=== PATIENT | male | born 1940 | race Caucasian/White ===

== ENCOUNTER 2017-12-21 16:03 | Emergency (ER) | payer MEDICARE ==
[~2017-12-21] VITALS: Ht 182.9 cm; Wt 94.3 kg
[~2017-12-21 16:03] MED LIST: ACET325T14 PO; AMLO5TAB2 PO; ASPI-515 PO; ENOX40SY4 SQ; FLUT9.9S NAS; LISI-167 PO; METO25TA35 PO; NIAC500C8 PO; OXYC5TAB3 PO; PANT40TA3 PO; SENN1TAB67 PO; SENN1TAB7 PO; SULF1TAB24 PO; TAMS-11 PO; TIOT18CA INH; [UNRECOGNIZED DRUG - CODE] PO
[2017-12-21 17:13] LABS: BASOPHILS # (AUTO) 0.07 x10^3/uL (0-0.1); BASOPHILS % (AUTO) 1 % (0-1); EOSINOPHILS # (AUTO) 0.14 x10^3/uL (0-0.4); EOSINOPHILS % (AUTO) 2 % (1-7); LYMPHOCYTES # (AUTO) 1.75 x10^3/uL (1-3.4); LYMPHOCYTES % (AUTO) 29 % (22-44); MD NO; MEAN CORPUSCULAR HEMOGLOBIN 32.2 pg (27.5-34.5); MEAN CORPUSCULAR HGB CONC 33.9 g/dL (33.2-36.2); MEAN PLATELET VOLUME 6.9 fL (7.4-10.4); MONOCYTES # (AUTO) 0.42 x10^3/uL (0.2-0.8); MONOCYTES % (AUTO) 7 % (2-9); NEUTROPHILS # (AUTO) 3.77 x10^3/uL (1.8-6.8); NEUTROPHILS % (AUTO) 61 % (42-75); PLATELET COUNT 183 x10^3/uL (130-400); RED BLOOD COUNT 4.81 x10^6/uL (4.38-5.82); RED CELL DISTRIBUTION WIDTH 14.4 % (9.4-14.8)
[2017-12-21 17:22] LABS: ALBUMIN 3.8 g/dL (3.4-5.0); ANION GAP 5 mmol/L (5-15); CHLORIDE 108 mmol/L (98-107); CREATININE 1.11 mg/dL (0.7-1.3)
[2017-12-21 18:24] VITALS: BP 153/82
[2017-12-21 18:26] LABS: CULTURE INDICATED? YES; MICROSCOPIC INDICATED
== END 2017-12-21 19:10 | disposition home or self-care (01) ==
LOC: ED 19:00
DX: R31.0 Gross hematuria (principal); D29.1 Benign neoplasm of prostate; N30.00 Acute cystitis without hematuria; J44.9 Chronic obstructive pulmonary disease, unspecified; I10 Essential (primary) hypertension; F17.200 Nicotine dependence, unspecified, uncomplicated
CPT/HCPCS: 36415; 51702; 80048; 81001; 82040; 85025; 87077; 87086; 87186; 99284

== ENCOUNTER → 2018-09-22 | Outpatient (CLI) | payer MEDICARE ==
[~2018-09-22] MED LIST changes: +AMLO-150 PO; -AMLO5TAB2 PO; +ASCO10004 PO; +ATOR40TA78 PO; +B CO1TAB14 PO; +CETI10TA24 PO; +FINA5TAB4 PO; +MAGN400T36 PO; +MULT-516 PO; +NIAC500T9 PO; +OMEG-173 PEG; +PLAN450C PO; +POTASSIUM PO; +RED600TA PO; +SAW450CA7 PO; +SENN-177 PO; -SENN1TAB7 PO; +VITA80004 PO
[2018-09-22 13:25] LABS: BASOPHILS # (AUTO) 0.08 x10^3/uL (0-0.1); BASOPHILS % (AUTO) 1 % (0-1); EOSINOPHILS # (AUTO) 0.27 x10^3/uL (0-0.4); EOSINOPHILS % (AUTO) 4 % (1-7); LYMPHOCYTES # (AUTO) 2.22 x10^3/uL (1-3.4); LYMPHOCYTES % (AUTO) 32 % (22-44); MD NO; MEAN CORPUSCULAR HEMOGLOBIN 32.2 pg (27.5-34.5); MEAN CORPUSCULAR VOLUME 97.7 fL (81-97); MEAN PLATELET VOLUME 7.2 fL (7.4-10.4); MONOCYTES # (AUTO) 0.42 x10^3/uL (0.2-0.8); MONOCYTES % (AUTO) 6 % (2-9); NEUTROPHILS # (AUTO) 3.99 x10^3/uL (1.8-6.8); NEUTROPHILS % (AUTO) 57 % (42-75); PLATELET COUNT 155 x10^3/uL (130-400); RED BLOOD COUNT 5.09 x10^6/uL (4.38-5.82); RED CELL DISTRIBUTION WIDTH 14.1 % (9.4-14.8)
[2018-09-22 13:57] LABS: CHLORIDE 110 mmol/L (98-107)
[2018-09-22 14:04] LABS: ALANINE AMINOTRANSFERASE 21 U/L (12-78); ALKALINE PHOSPHATASE 79 U/L (45-117); ANION GAP 6 mmol/L (5-15); BILIRUBIN,TOTAL 0.4 mg/dL (0.2-1.0); CALCIUM 9.2 mg/dL (8.5-10.1); CREATININE 0.98 mg/dL (0.7-1.3); TOTAL PROTEIN 7.9 g/dL (6.4-8.2)
== END | disposition home or self-care (01) ==
LOC: STAR 12:03
PROVIDERS: ATTEND Colon & Rectal Surgery
DX: Z01.818 Encounter for other preprocedural examination (principal); R94.31 Abnormal electrocardiogram [ECG] [EKG]; I44.0 Atrioventricular block, first degree
CPT/HCPCS: 36415; 80053; 85025; 93005

== ENCOUNTER 2018-10-15 05:49 | Inpatient (IN) | payer MEDICARE ==
[~2018-10-15] VITALS: Ht 185.4 cm; Wt 97.2 kg
[2018-10-15 06:18] VITALS: BP 173/75
[2018-10-15] MEDS ORDERED: LACTATED RINGERS 1,000 ML IV SCH (06:23)
[2018-10-15] MEDS ORDERED: ALBUTEROL/IPRATROPIUM 2.5MG/0.5MG, 3 ML NEB ONE (06:44)
[2018-10-15] MEDS ORDERED: EPINEPHRINE 1 MG/ML, 1ML ONE (07:25)
[2018-10-15] MEDS ORDERED: BUPIVACAINE/PF 0.5% ONE (07:25)
[2018-10-15] MEDS ORDERED: ALBUTEROL/IPRATROPIUM 2.5MG/0.5MG, 3 ML ONE (07:34)
[2018-10-15] MEDS ORDERED: SUGAMMADEX 200 MG/2 ML IVPush ONE (07:44)
[2018-10-15] MEDS ORDERED: CEFOTETAN 2 GM ONE (07:44)
[2018-10-15] MEDS ORDERED: EPHEDRINE 50 MG/ML, 1ML ONE (08:10)
[2018-10-15] MEDS ORDERED: PHENYLEPHRINE 10 MG/ML ONE (08:10)
[2018-10-15] MEDS ORDERED: PROPOFOL 10 MG/ML, 20ML ONE ×2 (08:10→08:59)
[2018-10-15] MEDS ORDERED: ROCURONIUM 10MG/ML,5ML ONE ×2 (08:10→08:59)
[2018-10-15] MEDS ORDERED: FENTANYL PF 100 MCG/2ML ONE ×4 (08:22→11:02)
[2018-10-15] MEDS ORDERED: THROMBIN 5,000 UNIT VIAL TP ONE ×2 (08:42→08:47)
[2018-10-15] MEDS ORDERED: THROMBIN 20,000 UNIT VIAL TP ONE (08:58)
[2018-10-15] MEDS ORDERED: HYDROmorphone 2 MG/ML, 1ML IVPush PRN (09:00)
[2018-10-15] MEDS ORDERED: OXYcodone 5 MG/5 ML ORAL.SOL UDC PO PRN (09:00)
[2018-10-15] MEDS ORDERED: ACETAMINOPHEN 325 MG TABLET PO PRN (09:00)
[2018-10-15] MEDS ORDERED: ESMOLOL 100 MG/10 ML ONE (09:00)
[2018-10-15] MEDS ORDERED: METOPROLOL 1 MG/ML, 5ML ONE (09:00)
[2018-10-15] MEDS ORDERED: MEPERIDINE/PF 25MG/0.5ML IVPush PRN (09:00)
[2018-10-15] MEDS ORDERED: MORPHINE SULFATE 4 MG/ML, 1ML IVPush PRN ×2 (09:00→14:30)
[2018-10-15] MEDS ORDERED: FENTANYL PF 100 MCG/2ML IV PRN (09:00)
[2018-10-15] MEDS ORDERED: HYDROcodone/APAP 7.5-325MG/15ML UDC PO PRN (09:00)
[2018-10-15] MEDS: HYDROmorphone 2 MG/ML, 1ML IVPush PRN ×3 (09:20→13:00)
[2018-10-15] MEDS ORDERED: OXYcodone 5 MG/5 ML ORAL.SOL UDC ONE (11:02)
[2018-10-15] MEDS ORDERED: ACETAMINOPHEN 650 MG/20.3 ML UDC ONE (11:23)
[2018-10-15 11:42] LABS: BASOPHILS # (AUTO) 0.03 x10^3/uL (0-0.1); BASOPHILS % (AUTO) 0 % (0-1); EOSINOPHILS # (AUTO) 0.03 x10^3/uL (0-0.4); EOSINOPHILS % (AUTO) 0 % (1-7); LYMPHOCYTES # (AUTO) 0.51 x10^3/uL (1-3.4); LYMPHOCYTES % (AUTO) 7 % (22-44); MD NO; MEAN CORPUSCULAR HGB CONC 33.1 g/dL (33.2-36.2); MEAN CORPUSCULAR VOLUME 96.9 fL (81-97); MEAN PLATELET VOLUME 6.5 fL (7.4-10.4); MONOCYTES # (AUTO) 0.24 x10^3/uL (0.2-0.8); MONOCYTES % (AUTO) 3 % (2-9); NEUTROPHILS # (AUTO) 6.31 x10^3/uL (1.8-6.8); NEUTROPHILS % (AUTO) 89 % (42-75); PLATELET COUNT 182 x10^3/uL (130-400); RED BLOOD COUNT 3.67 x10^6/uL (4.38-5.82); RED CELL DISTRIBUTION WIDTH 14.4 % (9.4-14.8)
[2018-10-15] MEDS ORDERED: HYDROmorphone 2 MG/ML, 1ML ONE (11:52)
[2018-10-15 11:54] LABS: INTERNATIONAL NORMALIZED RATIO 1.11 (0.93-1.1); PROTHROMBIN TIME 11.6 Seconds (9.6-11.5)
[2018-10-15] MEDS: IPRATROPIUM 0.5 MG/2.5 ML INHA NPPB SCH ×2 (14:30→20:30)
[2018-10-15] MEDS ORDERED: LORazepam 2 MG/ML, 1ML IVPush PRN (14:30)
[2018-10-15] MEDS ORDERED: TRAZODONE 50MG TABLET PO PRN (14:30)
[2018-10-15] MEDS ORDERED: DIPHENHYDRAMINE 25 MG CAPSULE PO PRN (14:30)
[2018-10-15] MEDS ORDERED: CALCIUM CARBONATE 500 MG TAB.CHEW PO PRN (14:30)
[2018-10-15] MEDS ORDERED: ONDANSETRON 2MG/ML, 2ML IV PRN (14:30)
[2018-10-15] MEDS ORDERED: DIPHENHYDRAMINE 50 MG/ML, 1ML IVPush PRN (14:30)
[2018-10-15] MEDS ORDERED: SCOPOLAMINE PATCH, 1.5MG PATCH.TD72 TD PRN (14:30)
[2018-10-15] MEDS ORDERED: DEXAMETHASONE 4 MG/ML, 1ML IVPush PRN (14:30)
[2018-10-15] MEDS ORDERED: LORazepam 1MG TABLET PO PRN (14:30)
[2018-10-15] MEDS ORDERED: HALOPERIDOL 5 MG/ML IVPush PRN (14:30)
[2018-10-15] MEDS: OXYcodone IR 5MG TABLET PO PRN ×3 (15:25→23:23)
[2018-10-15] MEDS: LACTATED RINGERS 1,000 ML IV SCH (16:00)
[2018-10-15] MEDS: ACETAMINOPHEN 500 MG TABLET PO SCH ×2 (17:41→23:22)
[2018-10-15] MEDS: METOPROLOL TARTRATE 25 MG TABLET PO SCH (17:41)
[2018-10-15 19:04] VITALS: BP 148/70
[2018-10-15] MEDS: ATORVASTATIN 40 MG TABLET PO SCH (20:44)
[2018-10-15 23:36] VITALS: BP 130/56
[2018-10-16] MEDS: LACTATED RINGERS 1,000 ML IV SCH ×3 (01:09→21:00)
[2018-10-16] MEDS: IPRATROPIUM 0.5 MG/2.5 ML INHA NPPB SCH ×4 (02:30→20:30)
[2018-10-16 03:15] LABS: BASOPHILS # (AUTO) 0.03 x10^3/uL (0-0.1); BASOPHILS % (AUTO) 1 % (0-1); EOSINOPHILS # (AUTO) 0.09 x10^3/uL (0-0.4); EOSINOPHILS % (AUTO) 2 % (1-7); LYMPHOCYTES # (AUTO) 1.16 x10^3/uL (1-3.4); LYMPHOCYTES % (AUTO) 22 % (22-44); MD NO; MEAN CORPUSCULAR HEMOGLOBIN 32.7 pg (27.5-34.5); MEAN CORPUSCULAR HGB CONC 33.4 g/dL (33.2-36.2); MEAN PLATELET VOLUME 7.4 fL (7.4-10.4); MONOCYTES # (AUTO) 0.55 x10^3/uL (0.2-0.8); MONOCYTES % (AUTO) 10 % (2-9); NEUTROPHILS # (AUTO) 3.51 x10^3/uL (1.8-6.8); NEUTROPHILS % (AUTO) 66 % (42-75); PLATELET COUNT 177 x10^3/uL (130-400); RED BLOOD COUNT 3.54 x10^6/uL (4.38-5.82); RED CELL DISTRIBUTION WIDTH 14.5 % (9.4-14.8)
[2018-10-16 03:22] LABS: ANION GAP 4 mmol/L (5-15); CALCIUM 8.2 mg/dL (8.5-10.1); CHLORIDE 110 mmol/L (98-107)
[2018-10-16 03:23] LABS: CREATININE 0.99 mg/dL (0.7-1.3)
[2018-10-16 03:48] VITALS: BP 117/60
[2018-10-16 05:35] VITALS: BP 137/67
[2018-10-16] MEDS: OXYcodone IR 5MG TABLET PO PRN ×4 (05:36→21:25)
[2018-10-16] MEDS: METOPROLOL TARTRATE 25 MG TABLET PO SCH ×2 (05:36→17:15)
[2018-10-16] MEDS: ACETAMINOPHEN 500 MG TABLET PO SCH ×4 (05:36→23:20)
[2018-10-16 07:25] VITALS: BP 126/63
[2018-10-16] MEDS: ASCORBIC ACID 500 MG TABLET PO SCH (08:55)
[2018-10-16] MEDS: TAMSULOSIN 0.4 MG CAP.ER.24H PO SCH (08:55)
[2018-10-16] MEDS: CETIRIZINE 10 MG TABLET PO SCH (08:55)
[2018-10-16] MEDS: FINASTERIDE 5 MG TABLET PO SCH (08:55)
[2018-10-16] MEDS ORDERED: FENTANYL PF 100 MCG/2ML IV PRN (10:00)
[2018-10-16 13:40] VITALS: BP 142/67
[2018-10-16 17:18] VITALS: BP 152/64
[2018-10-16 19:51] VITALS: BP 136/62
[2018-10-16] MEDS: ATORVASTATIN 40 MG TABLET PO SCH (21:25)
[2018-10-17] MEDS: IPRATROPIUM 0.5 MG/2.5 ML INHA NPPB SCH ×2 (02:30→09:40)
[2018-10-17 03:58] VITALS: BP 143/67
[2018-10-17] MEDS: OXYcodone IR 5MG TABLET PO PRN ×2 (04:07→10:49)
[2018-10-17] MEDS: LACTATED RINGERS 1,000 ML IV SCH (05:59)
[2018-10-17] MEDS: ACETAMINOPHEN 500 MG TABLET PO SCH ×2 (05:59→11:29)
[2018-10-17] MEDS: METOPROLOL TARTRATE 25 MG TABLET PO SCH (05:59)
[2018-10-17 06:15] LABS: BASOPHILS # (AUTO) 0.02 x10^3/uL (0-0.1); BASOPHILS % (AUTO) 0 % (0-1); EOSINOPHILS # (AUTO) 0.07 x10^3/uL (0-0.4); EOSINOPHILS % (AUTO) 1 % (1-7); LYMPHOCYTES % (AUTO) 12 % (22-44); MD NO; MEAN CORPUSCULAR HEMOGLOBIN 32.4 pg (27.5-34.5); MEAN CORPUSCULAR HGB CONC 32.8 g/dL (33.2-36.2); MEAN CORPUSCULAR VOLUME 98.7 fL (81-97); MEAN PLATELET VOLUME 7.7 fL (7.4-10.4); MONOCYTES # (AUTO) 0.59 x10^3/uL (0.2-0.8); MONOCYTES % (AUTO) 8 % (2-9); NEUTROPHILS # (AUTO) 5.83 x10^3/uL (1.8-6.8); NEUTROPHILS % (AUTO) 79 % (42-75); PLATELET COUNT 172 x10^3/uL (130-400); RED BLOOD COUNT 3.67 x10^6/uL (4.38-5.82); RED CELL DISTRIBUTION WIDTH 14.3 % (9.4-14.8)
[2018-10-17 06:21] LABS: ANION GAP 5 mmol/L (5-15); CALCIUM 8.9 mg/dL (8.5-10.1); CHLORIDE 107 mmol/L (98-107); CREATININE 0.93 mg/dL (0.7-1.3)
[2018-10-17 07:25] VITALS: BP 135/71
[2018-10-17] MEDS: ASCORBIC ACID 500 MG TABLET PO SCH (08:16)
[2018-10-17] MEDS: TAMSULOSIN 0.4 MG CAP.ER.24H PO SCH (08:17)
[2018-10-17] MEDS: FINASTERIDE 5 MG TABLET PO SCH (08:17)
[2018-10-17] MEDS: CETIRIZINE 10 MG TABLET PO SCH (08:17)
[2018-10-17 08:45] VITALS: BP 137/67
[2018-10-17] MEDS ORDERED: OXYC-302 PO (11:28)
== END 2018-10-17 12:00 | disposition home or self-care (01) | DRG 330 ==
LOC: ORIP 05:49 → 4NOR 13:48 → DCLOUNGE 10-17 11:39
PROVIDERS: ADMIT Colon & Rectal Surgery; ATTEND Colon & Rectal Surgery
PROC: 30233R1 Transfusion of Nonautologous Platelets into Peripheral Vein, Percutaneous Approach (ICD-10-PCS; 2018-10-15)
PROC: 0DBL4ZZ Excision of Transverse Colon, Percutaneous Endoscopic Approach (ICD-10-PCS; principal; 2018-10-15 07:30)
DX: C18.4 Malignant neoplasm of transverse colon (principal); D68.69 Other thrombophilia; I10 Essential (primary) hypertension; E03.9 Hypothyroidism, unspecified; F17.210 Nicotine dependence, cigarettes, uncomplicated; Z88.0 Allergy status to penicillin; Z79.82 Long term (current) use of aspirin; Z79.899 Other long term (current) drug therapy; Z80.1 Family history of malignant neoplasm of trachea, bronchus and lung; Z80.0 Family history of malignant neoplasm of digestive organs; R58 Hemorrhage, not elsewhere classified
CPT/HCPCS: 36415; 80048; 83735; 85025; 85610; 85730; 86850; 86900; 86923; 88309; 94640; G0378; J0171; J1170; J2704; J3010; J7620; J2370; J3490; J7120; P9035

== ENCOUNTER 2019-04-06 08:56 | Outpatient (CLI) | payer MEDICARE ==
[~2019-04-06 08:56] MED LIST changes: +OXYC-302 PO
== END 2019-04-06 23:59 | disposition home or self-care (01) ==
LOC: RAD 08:56
PROVIDERS: ATTEND Colon & Rectal Surgery
DX: Z01.818 Encounter for other preprocedural examination (principal); C18.9 Malignant neoplasm of colon, unspecified; F17.200 Nicotine dependence, unspecified, uncomplicated; F12.90 Cannabis use, unspecified, uncomplicated
CPT/HCPCS: 71046

== ENCOUNTER 2019-05-19 09:22 | Outpatient (CLI) | payer MEDICARE ==
[~2019-05-19 09:22] MED LIST changes: -CETI10TA24 PO; +CETI10TA26 PO
[2019-05-19] MEDS ORDERED: OMNIPAQUE 350 MG/ML, 100ML BOTTLE ONE (15:32)
== END 2019-05-19 23:59 | disposition home or self-care (01) ==
LOC: CFH 09:22
PROVIDERS: ATTEND Surgery
DX: I71.4 Abdominal aortic aneurysm, without rupture (principal); J43.9 Emphysema, unspecified; M48.56XA Collapsed vertebra, not elsewhere classified, lumbar region, initial encounter for fracture; N28.1 Cyst of kidney, acquired; N40.0 Benign prostatic hyperplasia without lower urinary tract symptoms; I70.0 Atherosclerosis of aorta; R91.8 Other nonspecific abnormal finding of lung field
CPT/HCPCS: 71275; 74174; 82565; Q9967

== ENCOUNTER → 2019-06-30 | Outpatient (CLI) | payer MEDICARE ==
[2019-06-30 10:38] LABS: BASOPHILS # (AUTO) 0.07 x10^3/uL (0-0.1); BASOPHILS % (AUTO) 1 % (0-1); EOSINOPHILS # (AUTO) 0.29 x10^3/uL (0-0.4); EOSINOPHILS % (AUTO) 4 % (1-7); LYMPHOCYTES # (AUTO) 1.87 x10^3/uL (1-3.4); LYMPHOCYTES % (AUTO) 28 % (22-44); MD NO; MEAN CORPUSCULAR HEMOGLOBIN 32.2 pg (27.5-34.5); MEAN CORPUSCULAR HGB CONC 33.5 g/dL (33.2-36.2); MEAN CORPUSCULAR VOLUME 96.1 fL (81-97); MEAN PLATELET VOLUME 6.7 fL (7.4-10.4); MONOCYTES # (AUTO) 0.42 x10^3/uL (0.2-0.8); MONOCYTES % (AUTO) 6 % (2-9); NEUTROPHILS # (AUTO) 4.12 x10^3/uL (1.8-6.8); NEUTROPHILS % (AUTO) 61 % (42-75); PLATELET COUNT 173 x10^3/uL (130-400); RED BLOOD COUNT 4.67 x10^6/uL (4.38-5.82); RED CELL DISTRIBUTION WIDTH 15.3 % (9.4-14.8)
[2019-06-30 11:20] LABS: ALBUMIN 3.6 g/dL (3.4-5.0); ANION GAP 3 mmol/L (5-15); CALCIUM 8.6 mg/dL (8.5-10.1); CHLORIDE 111 mmol/L (98-107)
[2019-06-30 11:24] LABS: CREATININE 1.06 mg/dL (0.7-1.3)
[2019-06-30 11:25] LABS: ALANINE AMINOTRANSFERASE 21 U/L (12-78); ALKALINE PHOSPHATASE 75 U/L (45-117); BILIRUBIN,TOTAL 0.8 mg/dL (0.2-1.0); TOTAL PROTEIN 7.3 g/dL (6.4-8.2)
== END | disposition home or self-care (01) ==
LOC: STAR 09:11
PROVIDERS: ATTEND Surgery
DX: Z01.818 Encounter for other preprocedural examination (principal); I71.4 Abdominal aortic aneurysm, without rupture
CPT/HCPCS: 36415; 71046; 80053; 85025; 93005

== ENCOUNTER 2019-07-05 04:42 | Emergency (ER) | payer MEDICARE | END 2019-07-05 04:58 | LOC: ED 04:45 | DX: R10.9 Unspecified abdominal pain (principal); Z53.21 Procedure and treatment not carried out due to patient leaving prior to being seen by health care provider ==

== ENCOUNTER → 2019-09-15 | Outpatient (CLI) | payer MEDICARE ==
[~2019-09-15] MED LIST changes: +OMNIPAQUE 350 MG/ML, 100ML BOTTLE ONE
== END | disposition home or self-care (01) ==
LOC: CFH 07:13
PROVIDERS: ATTEND Surgery
DX: I71.4 Abdominal aortic aneurysm, without rupture (principal)
CPT/HCPCS: 74174; 82565; Q9967

== ENCOUNTER 2019-10-13 12:20 | Outpatient (CLI) | payer MEDICARE ==
[~2019-10-13 12:20] MED LIST changes: -OMNIPAQUE 350 MG/ML, 100ML BOTTLE ONE
[2019-10-13] MEDS ORDERED: METO200T47 PO (17:18)
[2019-10-15] MEDS ORDERED: TRAM50TA2 PO (14:10)
== END 2019-10-13 23:59 | disposition home or self-care (01) ==
LOC: RAD 12:20
PROVIDERS: ATTEND Internal Medicine Gastroenterology
DX: C18.4 Malignant neoplasm of transverse colon (principal); J84.9 Interstitial pulmonary disease, unspecified; K82.0 Obstruction of gallbladder; I71.4 Abdominal aortic aneurysm, without rupture; M51.36 Other intervertebral disc degeneration, lumbar region
CPT/HCPCS: 74176